=== PATIENT | female | born 1950 | race Caucasian/White ===

== ENCOUNTER 2018-01-17 08:05 | Inpatient (IN) ==
[2018-01-17] MEDS ORDERED: DILTIAZEM 25 MG/5 ML VIAL IV ONE ×2 (08:45→08:48)
[2018-01-17] MEDS ORDERED: DILTIAZEM 50 MG/10 ML VIAL IV STA ×2 (08:51→10:11)
[2018-01-17 09:42] LABS: Basophils % 0.3 % (0.0-0.8); Eosinophils # 0.1 10*3/uL (0.0-0.87); Eosinophils % 0.4 % (0.00-10.9); Hematocrit 43.2 VOL% (35.7-47.0); Hemoglobin 14.4 GM/DL (12.0-16.0); Immature Granulocytes % 0.3 %; Immature Granulocytes Absolute 0.04 #; Lymphocytes # 1.4 10*3/uL (1.4-4.0); Lymphocytes % 11.6 % (21.3-54.2); Mean Corpuscular HGB Conc 33.3 GM/DL (32-36); Mean Corpuscular Hemoglobin 32 PG (27-34); Mean Corpuscular Volume 95.4 FL (87-102); Mean Platelet Volume 9.7 FL (9.6-12.0); Monocytes # 0.6 10*3/uL (0.11-0.8); Monocytes % 4.9 % (1.7-12.7); Neutrophils # 9.8 10*3/uL (1.4-7.4); Neutrophils % 82.5 % (38.7-73.9); Platelet Count 341 T/CUMM (130-400); Red Blood Count 4.53 MC/CUMM (3.8-5.5); Red Cell Distribution Width 13.2 % (9.3-17.3); White Blood Count 11.9 T/CUMM (4-12)
[2018-01-17 10:19] LABS: Alanine Aminotransferase 21 U/L (13-56); Albumin 3.6 G/DL (3.4-5.0); Alkaline Phosphatase 75 U/L (45-117); Aspartate Amino Transferase 23 U/L (0-37); Bilirubin,Total < 0.39 MG/DL (0.2-1.0); Blood Urea Nitrogen 16 MG/DL (7-18); Calcium 8.8 MG/DL (8.5-10.1); Glucose 95 MG/DL (74-106); Osmolality,Calculated 277.5 MOS/KG (273-304); Potassium 4.8 MMOL/L (3.5-5.1); Sodium 139 MMOL/L (136-145)
[2018-01-17] MEDS: DILTIAZEM INJ 100 MG in SODIUM CHLORIDE 0.9% 100 ML IV SCH ×2 (11:18→20:08)
[2018-01-17] MEDS ORDERED: SODIUM CHLORIDE 0.9% 250 ML IV STA (11:30)
[2018-01-17] MEDS ORDERED: MAGNESIUM SULF RIDER 4 GM in PREMIX 1 EACH IV PRN (12:17)
[2018-01-17] MEDS ORDERED: MAGNESIUM SULF RIDER 2 GM in PREMIX 1 EACH IV PRN (12:17)
[2018-01-17] MEDS ORDERED: ENOXAPARIN 40 MG/0.4 ML SYRINGE SUBCUT SCH (12:30)
[2018-01-17] MEDS: SODIUM CHLORIDE 0.9% 1,000 ML IV SCH ×2 (13:45→20:07)
[2018-01-17] MEDS ORDERED: SOTALOL 80 MG TABLET PO SCH (19:00)
[2018-01-17] MEDS: POTASSIUM CHLORIDE 20 MEQ TABLET PO SCH (20:07)
[2018-01-17] MEDS: MAGNESIUM CHLORIDE 64 MG TABLET PO SCH (20:07)
[2018-01-18] MEDS: SODIUM CHLORIDE 0.9% 1,000 ML IV SCH ×2 (04:05→11:34)
[2018-01-18 04:14] LABS: Calcium 7.9 MG/DL (8.5-10.1); Osmolality,Calculated 284.8 MOS/KG (273-304); Potassium 4.3 MMOL/L (3.5-5.1)
[2018-01-18 04:18] LABS: Troponin I < 0.015 NG/ML (0.00-0.045)
[2018-01-18] MEDS ORDERED: dilTIAZem Drip 125 MG/125 ML PREMIX IV SCH (08:00)
[2018-01-18] MEDS ORDERED: ASPIRIN EC 325 MG TABLET PO SCH (09:00)
[2018-01-18] MEDS ORDERED: SOTALOL 80 MG TABLET PO SCH (09:00)
[2018-01-18] MEDS: MAGNESIUM CHLORIDE 64 MG TABLET PO SCH ×2 (09:46→20:51)
[2018-01-18] MEDS: POTASSIUM CHLORIDE 20 MEQ TABLET PO SCH ×2 (09:46→20:52)
[2018-01-18] MEDS: APIXABAN 5 MG TABLET PO SCH ×2 (11:13→20:51)
[2018-01-18] MEDS: DILTIAZEM 60 MG TABLET PO SCH ×3 (12:03→20:51)
[2018-01-18 15:52] LABS: Apearance,Urine CLEAR (Clear); Bilirubin,Urine Negative (Negative); Blood, Urine Moderate mg/dL (Negative); Glucose,Urine (UA) Negative (Negative); Ketones,Urine Negative (Negative); Mucus,Urine Occasional /LPF (Occasional); Nitrite,Urine Negative (Negative); Protein,Urine Negative; RBC,Urine 7 /HPF (0-4); Squamous Epithelial Cell,Urine Occasional /HPF (0-10); Urine Color Colorless (Yellow); Urine Specific Gravity 1.005 (1.001-1.035); Urine Urobilinogen < 2.0 EU/DL (0.2-1.0); WBC,Urine 4 /HPF (0-6)
[2018-01-18] MEDS: SOTALOL 80 MG TABLET PO SCH (20:51)
[2018-01-19 03:51] LABS: Basophils % 0.3 % (0.0-0.8); Eosinophils # 0.1 10*3/uL (0.0-0.87); Eosinophils % 1.2 % (0.00-10.9); Hematocrit 35.3 VOL% (35.7-47.0); Hemoglobin 11.6 GM/DL (12.0-16.0); Immature Granulocytes % 0.3 %; Immature Granulocytes Absolute 0.02 #; Lymphocytes # 2.2 10*3/uL (1.4-4.0); Mean Corpuscular HGB Conc 32.9 GM/DL (32-36); Mean Corpuscular Hemoglobin 32 PG (27-34); Mean Corpuscular Volume 96.4 FL (87-102); Mean Platelet Volume 9.7 FL (9.6-12.0); Monocytes # 0.5 10*3/uL (0.11-0.8); Monocytes % 7.4 % (1.7-12.7); Neutrophils # 3.8 10*3/uL (1.4-7.4); Neutrophils % 57.8 % (38.7-73.9); Platelet Count 291 T/CUMM (130-400); Red Blood Count 3.66 MC/CUMM (3.8-5.5); Red Cell Distribution Width 13.1 % (9.3-17.3); White Blood Count 6.6 T/CUMM (4-12)
[2018-01-19 04:12] LABS: Calcium 8.5 MG/DL (8.5-10.1); Osmolality,Calculated 285.7 MOS/KG (273-304); Potassium 3.9 MMOL/L (3.5-5.1)
[2018-01-19 08:07] VITALS: BP 123/69
[2018-01-19] MEDS: DILTIAZEM 60 MG TABLET PO SCH (08:11)
[2018-01-19] MEDS: SOTALOL 80 MG TABLET PO SCH (08:11)
[2018-01-19] MEDS: APIXABAN 5 MG TABLET PO SCH (08:12)
[2018-01-19] MEDS: MAGNESIUM CHLORIDE 64 MG TABLET PO SCH (08:12)
[2018-01-19] MEDS: POTASSIUM CHLORIDE 20 MEQ TABLET PO SCH (08:12)
[2018-01-19] MEDS ORDERED: ASPIRIN EC 81 MG TABLET PO SCH (09:00)
== END 2018-01-19 10:54 | disposition home or self-care (01) | DRG 310 ==
LOC: N.EDINP 08:05 → N.ED 08:05 → N.TELEN 12:49
PROVIDERS: ADMIT Internal Medicine Cardiovascular Disease; ATTEND Internal Medicine Cardiovascular Disease

== ENCOUNTER 2021-02-14 13:28 | Inpatient (IN) ==
[2021-02-14] MEDS ORDERED: DILTIAZEM 50 MG/10 ML VIAL IV STA (16:58)
[2021-02-14 17:06] LABS: Basophils % 0.6 % (0.0-0.8); Eosinophils % 0.6 % (0.00-10.9); Hematocrit 45.8 VOL% (35.7-47.0); Hemoglobin 14.7 GM/DL (12.0-16.0); Immature Granulocytes % 0.3 %; Immature Granulocytes Absolute 0.02 #; Lymphocytes % 30.6 % (21.3-54.2); Mean Corpuscular HGB Conc 32.1 GM/DL (32-36); Mean Corpuscular Volume 96.6 FL (87-102); Mean Platelet Volume 9.5 FL (9.6-12.0); Monocytes % 8.8 % (1.7-12.7); Neutrophils % 59.1 % (38.7-73.9); Platelet Count 385 T/CUMM (130-400); Red Blood Count 4.74 MC/CUMM (3.8-5.5); Red Cell Distribution Width 13.6 % (9.3-17.3); White Blood Count 6.6 T/CUMM (4-12)
[2021-02-14 17:14] LABS: PT Patient Result 11.3 SECS (10.5-12.0)
[2021-02-14] MEDS: DILTIAZEM INJ 100 MG in SODIUM CHLORIDE 0.9% 100 ML IV SCH (17:20)
[2021-02-14 17:44] LABS: Albumin 3.5 G/DL (3.4-5.0); Bilirubin,Total 0.6 MG/DL (0.20-1.00); Osmolality,Calculated 283.1 MOS/KG (273-304); Potassium 4.3 MMOL/L (3.5-5.1); Total Protein 7.6 G/DL (6.4-8.2)
[2021-02-14] MEDS ORDERED: cefTRIAXone 1,000 MG in SODIUM CHLORIDE 0.9% 100 ML IV STA (17:49)
[2021-02-14] MEDS ORDERED: AZITHROMYCIN 250 MG TABLET PO STA (17:49)
[2021-02-14] MEDS ORDERED: DEXTROSE 50% 25 GM/50 ML SYRINGE IV PRN (18:42)
[2021-02-14] MEDS ORDERED: ONDANSETRON 4 MG/2 ML VIAL IV PRN (18:42)
[2021-02-14] MEDS ORDERED: GLUCAGON 1 MG VIAL IM PRN (18:42)
[2021-02-14] MEDS ORDERED: ENOXAPARIN 100 MG/ML SYRINGE SUBCUT ONE (23:02)
[2021-02-15] MEDS: ENOXAPARIN 60 MG/0.6 ML SYRINGE SUBCUT SCH ×3 (01:02→20:59)
[2021-02-15 06:55] LABS: Basophils % 0.3 % (0.0-0.8); Eosinophils % 0.5 % (0.00-10.9); Hematocrit 41.9 VOL% (35.7-47.0); Hemoglobin 13.8 GM/DL (12.0-16.0); Immature Granulocytes % 0.2 %; Immature Granulocytes Absolute 0.01 #; Lymphocytes # 1.7 10*3/uL (1.4-4.0); Lymphocytes % 28.4 % (21.3-54.2); Mean Corpuscular HGB Conc 32.9 GM/DL (32-36); Mean Corpuscular Volume 96.8 FL (87-102); Mean Platelet Volume 9.4 FL (9.6-12.0); Neutrophils % 62.6 % (38.7-73.9); Platelet Count 326 T/CUMM (130-400); Red Blood Count 4.33 MC/CUMM (3.8-5.5); Red Cell Distribution Width 13.3 % (9.3-17.3)
[2021-02-15 07:24] LABS: Calcium 9.1 MG/DL (8.5-10.1); Potassium 3.8 MMOL/L (3.5-5.1); Thyroid Stimulating Hormone 1.85 uIU/ml (0.358-3.74)
[2021-02-15] MEDS: CLINDAMYCIN INJ 600 MG/50 ML PREMIX IV SCH ×2 (09:35→16:48)
[2021-02-15] MEDS ORDERED: LORazepam 2 MG/1 ML VIAL IV ONE (10:56)
[2021-02-15] MEDS: DILTIAZEM INJ 100 MG in SODIUM CHLORIDE 0.9% 100 ML IV SCH (12:01)
[2021-02-15] MEDS: PANTOPRAZOLE 40 MG TABLET PO SCH (15:03)
[2021-02-15] MEDS: DOCUSATE SODIUM 100 MG CAPSULE PO SCH ×2 (15:03→21:03)
[2021-02-15] MEDS: SOTALOL 80 MG TABLET PO SCH ×2 (15:03→23:41)
[2021-02-15] MEDS: POLYETHYLENE GLYCOL POWDER 17 GM PACK PO SCH (15:04)
[2021-02-15] MEDS: PIPERACILLIN/TAZOBACTAM 3,375 MG in SODIUM CHLORIDE 0.9% 100 ML IV SCH (15:59)
[2021-02-15] MEDS ORDERED: cefTRIAXone 1,000 MG in SODIUM CHLORIDE 0.9% 100 ML IV SCH (20:00)
[2021-02-15] MEDS ORDERED: AZITHROMYCIN INJ 500 MG in SODIUM CHLORIDE 0.9% 250 ML IV SCH (21:00)
[2021-02-16] MEDS: PIPERACILLIN/TAZOBACTAM 3,375 MG in SODIUM CHLORIDE 0.9% 100 ML IV SCH ×3 (00:30→17:00)
[2021-02-16] MEDS: DILTIAZEM INJ 100 MG in SODIUM CHLORIDE 0.9% 100 ML IV SCH ×2 (02:27→20:45)
[2021-02-16] MEDS: SOTALOL 80 MG TABLET PO SCH ×2 (09:00→20:47)
[2021-02-16] MEDS: PANTOPRAZOLE 40 MG TABLET PO SCH (09:17)
[2021-02-16] MEDS: DOCUSATE SODIUM 100 MG CAPSULE PO SCH ×2 (09:17→22:43)
[2021-02-16] MEDS: POLYETHYLENE GLYCOL POWDER 17 GM PACK PO SCH (09:17)
[2021-02-16] MEDS: VANCOMYCIN INJ 1,000 MG in SODIUM CHLORIDE 0.9% 250 ML IV SCH ×2 (11:21→20:50)
[2021-02-16] MEDS: ENOXAPARIN 60 MG/0.6 ML SYRINGE SUBCUT SCH ×2 (11:29→22:44)
[2021-02-17] MEDS: PIPERACILLIN/TAZOBACTAM 3,375 MG in SODIUM CHLORIDE 0.9% 100 ML IV SCH ×3 (00:22→18:15)
[2021-02-17] MEDS: SOTALOL 80 MG TABLET PO SCH ×2 (09:20→20:59)
[2021-02-17] MEDS: VANCOMYCIN INJ 1,000 MG in SODIUM CHLORIDE 0.9% 250 ML IV SCH ×2 (09:20→21:01)
[2021-02-17] MEDS: DOCUSATE SODIUM 100 MG CAPSULE PO SCH ×3 (09:21→23:44)
[2021-02-17] MEDS: POLYETHYLENE GLYCOL POWDER 17 GM PACK PO SCH ×2 (09:21→09:32)
[2021-02-17] MEDS: PANTOPRAZOLE 40 MG TABLET PO SCH (09:21)
[2021-02-17] MEDS: ENOXAPARIN 60 MG/0.6 ML SYRINGE SUBCUT SCH ×2 (09:21→21:00)
[2021-02-17] MEDS: DILTIAZEM INJ 100 MG in SODIUM CHLORIDE 0.9% 100 ML IV SCH ×2 (10:00→18:44)
[2021-02-17] MEDS: AZITHROMYCIN INJ 500 MG in SODIUM CHLORIDE 0.9% 250 ML IV SCH (16:27)
[2021-02-17] MEDS ORDERED: DILTIAZEM 30 MG TABLET PO ONE (17:45)
[2021-02-17] MEDS ORDERED: DILTIAZEM 30 MG TABLET PO SCH (21:00)
[2021-02-18] MEDS: PIPERACILLIN/TAZOBACTAM 3,375 MG in SODIUM CHLORIDE 0.9% 100 ML IV SCH ×4 (00:08→23:18)
[2021-02-18 05:33] LABS: Basophils % 0.5 % (0.0-0.8); Eosinophils # 0.2 10*3/uL (0.0-0.87); Eosinophils % 3.8 % (0.00-10.9); Hemoglobin 10.9 GM/DL (12.0-16.0); Immature Granulocytes % 0.2 %; Immature Granulocytes Absolute 0.01 #; Lymphocytes # 1.9 10*3/uL (1.4-4.0); Mean Corpuscular HGB Conc 32.1 GM/DL (32-36); Mean Corpuscular Volume 97.1 FL (87-102); Mean Platelet Volume 9.9 FL (9.6-12.0); Monocytes % 9.6 % (1.7-12.7); Neutrophils % 50.9 % (38.7-73.9); Platelet Count 287 T/CUMM (130-400); Red Cell Distribution Width 13.6 % (9.3-17.3); White Blood Count 5.5 T/CUMM (4-12)
[2021-02-18 05:51] LABS: Calcium 8.7 MG/DL (8.5-10.1); Osmolality,Calculated 283.8 MOS/KG (273-304); Potassium 3.9 MMOL/L (3.5-5.1)
[2021-02-18] MEDS: SOTALOL 80 MG TABLET PO SCH ×2 (09:11→21:51)
[2021-02-18] MEDS: PANTOPRAZOLE 40 MG TABLET PO SCH (09:12)
[2021-02-18] MEDS: ENOXAPARIN 60 MG/0.6 ML SYRINGE SUBCUT SCH ×2 (09:12→21:51)
[2021-02-18] MEDS: VANCOMYCIN INJ 1,000 MG in SODIUM CHLORIDE 0.9% 250 ML IV SCH ×2 (09:14→21:51)
[2021-02-18] MEDS: DOCUSATE SODIUM 100 MG CAPSULE PO SCH ×2 (09:26→21:52)
[2021-02-18] MEDS: POLYETHYLENE GLYCOL POWDER 17 GM PACK PO SCH (09:26)
[2021-02-18] MEDS: AZITHROMYCIN INJ 500 MG in SODIUM CHLORIDE 0.9% 250 ML IV SCH (16:01)
[2021-02-19] MEDS: POLYETHYLENE GLYCOL POWDER 17 GM PACK PO SCH (09:16)
[2021-02-19] MEDS: DOCUSATE SODIUM 100 MG CAPSULE PO SCH ×2 (09:16→22:49)
[2021-02-19] MEDS: PANTOPRAZOLE 40 MG TABLET PO SCH (09:18)
[2021-02-19] MEDS: SOTALOL 80 MG TABLET PO SCH ×2 (09:18→22:33)
[2021-02-19] MEDS: ENOXAPARIN 60 MG/0.6 ML SYRINGE SUBCUT SCH (09:19)
[2021-02-19] MEDS: VANCOMYCIN INJ 1,000 MG in SODIUM CHLORIDE 0.9% 250 ML IV SCH (09:20)
[2021-02-19] MEDS: PIPERACILLIN/TAZOBACTAM 3,375 MG in SODIUM CHLORIDE 0.9% 100 ML IV SCH ×2 (09:21→16:16)
[2021-02-19] MEDS: APIXABAN 5 MG TABLET PO SCH ×2 (10:48→22:34)
[2021-02-19] MEDS: AZITHROMYCIN INJ 500 MG in SODIUM CHLORIDE 0.9% 250 ML IV SCH (16:16)
[2021-02-19] MEDS ORDERED: APIXABAN 5 MG TABLET PO SCH (21:00)
[2021-02-20] MEDS: VANCOMYCIN INJ 1,000 MG in SODIUM CHLORIDE 0.9% 250 ML IV SCH ×3 (00:29→22:04)
[2021-02-20] MEDS: PIPERACILLIN/TAZOBACTAM 3,375 MG in SODIUM CHLORIDE 0.9% 100 ML IV SCH ×3 (02:06→17:34)
[2021-02-20] MEDS: PANTOPRAZOLE 40 MG TABLET PO SCH (09:02)
[2021-02-20] MEDS: APIXABAN 5 MG TABLET PO SCH ×2 (09:03→21:42)
[2021-02-20] MEDS: SOTALOL 80 MG TABLET PO SCH ×2 (09:03→21:42)
[2021-02-20] MEDS: POLYETHYLENE GLYCOL POWDER 17 GM PACK PO SCH (09:31)
[2021-02-20] MEDS: DOCUSATE SODIUM 100 MG CAPSULE PO SCH ×2 (09:31→21:43)
[2021-02-20] MEDS: AZITHROMYCIN INJ 500 MG in SODIUM CHLORIDE 0.9% 250 ML IV SCH (16:28)
[2021-02-21] MEDS: PIPERACILLIN/TAZOBACTAM 3,375 MG in SODIUM CHLORIDE 0.9% 100 ML IV SCH ×2 (00:25→09:36)
[2021-02-21 08:14] VITALS: BP 174/86
[2021-02-21] MEDS: APIXABAN 5 MG TABLET PO SCH (09:33)
[2021-02-21] MEDS: PANTOPRAZOLE 40 MG TABLET PO SCH (09:33)
[2021-02-21] MEDS: SOTALOL 80 MG TABLET PO SCH (09:33)
[2021-02-21] MEDS: DOCUSATE SODIUM 100 MG CAPSULE PO SCH (09:34)
[2021-02-21] MEDS: POLYETHYLENE GLYCOL POWDER 17 GM PACK PO SCH (09:34)
[2021-02-21] MEDS: VANCOMYCIN INJ 1,000 MG in SODIUM CHLORIDE 0.9% 250 ML IV SCH (12:41)
== END 2021-02-21 14:34 | disposition home or self-care (01) | DRG 177 ==
LOC: SUATTDRO → N.ED 13:28 → N.EDINP 18:42 → SUATTDRO 18:42 → N.TELES 20:50
PROVIDERS: ADMIT Internal Medicine; ATTEND Emergency Medicine

== ENCOUNTER 2021-05-13 10:15 | Observation (INO) ==
[2021-05-13] MEDS ORDERED: DILTIAZEM 50 MG/10 ML VIAL IV STA (10:46)
[2021-05-13] MEDS ORDERED: SODIUM CHLORIDE 0.9% 1,000 ML IV STA (10:48)
[2021-05-13 10:55] LABS: Basophils % 0.4 % (0.0-0.8); Eosinophils % 0.2 % (0.00-10.9); Hematocrit 42.8 VOL% (35.7-47.0); Hemoglobin 14.2 GM/DL (12.0-16.0); Immature Granulocytes % 0.4 %; Immature Granulocytes Absolute 0.03 #; Lymphocytes # 1.9 10*3/uL (1.4-4.0); Lymphocytes % 22.9 % (21.3-54.2); Mean Corpuscular HGB Conc 33.2 GM/DL (32-36); Mean Corpuscular Volume 94.3 FL (87-102); Mean Platelet Volume 9.4 FL (9.6-12.0); Monocytes % 7.9 % (1.7-12.7); Neutrophils % 68.2 % (38.7-73.9); Platelet Count 366 T/CUMM (130-400); Red Blood Count 4.54 MC/CUMM (3.8-5.5); Red Cell Distribution Width 13.4 % (9.3-17.3); White Blood Count 8.5 T/CUMM (4-12)
[2021-05-13] MEDS ORDERED: ENOXAPARIN 60 MG/0.6 ML SYRINGE SUBCUT SCH ×2 (11:00→23:00)
[2021-05-13 11:25] LABS: Thyroid Stimulating Hormone 1.67 uIU/ml (0.358-3.74)
[2021-05-13 11:34] LABS: Albumin 3.6 G/DL (3.4-5.0); Bilirubin,Total 0.4 MG/DL (0.20-1.00); Calcium 9.9 MG/DL (8.5-10.1); Osmolality,Calculated 275.5 MOS/KG (273-304); Total Protein 7.6 G/DL (6.4-8.2)
[2021-05-13] MEDS ORDERED: DEXTROSE 10% 250 ML BAG IV PRN (12:29)
[2021-05-13] MEDS ORDERED: GLUCAGON 1 MG VIAL IM PRN (12:29)
[2021-05-13] MEDS: DILTIAZEM 60 MG TABLET PO SCH ×2 (17:20→23:38)
[2021-05-13] MEDS: SOTALOL 80 MG TABLET PO SCH (21:15)
[2021-05-13] MEDS: MAGNESIUM CHLORIDE 64 MG TABLET PO SCH (21:15)
[2021-05-14] MEDS: DILTIAZEM 60 MG TABLET PO SCH ×4 (05:27→23:50)
[2021-05-14 07:31] LABS: Calcium 9.1 MG/DL (8.5-10.1); Osmolality,Calculated 276.5 MOS/KG (273-304); Potassium 4.1 MMOL/L (3.5-5.1)
[2021-05-14] MEDS: POTASSIUM CHLORIDE 20 MEQ TABLET PO SCH (09:55)
[2021-05-14] MEDS: CALCIUM (CARBONATE) 500 MG TABLET PO SCH (09:55)
[2021-05-14] MEDS: SOTALOL 80 MG TABLET PO SCH ×2 (09:55→20:28)
[2021-05-14] MEDS: ASCORBIC ACID 500 MG TABLET PO SCH (09:56)
[2021-05-14] MEDS: CHOLECALCIFEROL 5,000 UNIT TABLET PO SCH (09:56)
[2021-05-14] MEDS: MAGNESIUM CHLORIDE 64 MG TABLET PO SCH ×2 (09:56→20:28)
[2021-05-14] MEDS ORDERED: ENOXAPARIN 60 MG/0.6 ML SYRINGE SUBCUT ONE (16:34)
[2021-05-15] MEDS: DILTIAZEM 60 MG TABLET PO SCH ×4 (05:46→23:43)
[2021-05-15 09:12] LABS: PT Patient Result 11.1 SECS (10.5-12.0)
[2021-05-15] MEDS ORDERED: DIAZEPAM 10 MG/2 ML SYRINGE IV ONE (10:08)
[2021-05-15] MEDS: SOTALOL 80 MG TABLET PO SCH ×2 (10:16→20:15)
[2021-05-15] MEDS ORDERED: DIAZEPAM 5 MG TABLET PO ONE (12:33)
[2021-05-15] MEDS ORDERED: DIAZEPAM 5 MG TABLET ONE (12:38)
[2021-05-15] MEDS: ASCORBIC ACID 500 MG TABLET PO SCH (16:32)
[2021-05-15] MEDS: POTASSIUM CHLORIDE 20 MEQ TABLET PO SCH (16:32)
[2021-05-15] MEDS: MAGNESIUM CHLORIDE 64 MG TABLET PO SCH ×2 (16:32→20:16)
[2021-05-15] MEDS: CALCIUM (CARBONATE) 500 MG TABLET PO SCH (16:33)
[2021-05-15] MEDS: CHOLECALCIFEROL 5,000 UNIT TABLET PO SCH (16:33)
[2021-05-16] MEDS: DILTIAZEM 60 MG TABLET PO SCH (04:35)
[2021-05-16 05:44] LABS: Calcium 9.7 MG/DL (8.5-10.1); Osmolality,Calculated 280.4 MOS/KG (273-304); Potassium 5.5 MMOL/L (3.5-5.1)
[2021-05-16 08:41] VITALS: BP 137/64
[2021-05-16] MEDS: MAGNESIUM CHLORIDE 64 MG TABLET PO SCH (09:40)
[2021-05-16] MEDS: SOTALOL 80 MG TABLET PO SCH (09:40)
[2021-05-16] MEDS: CALCIUM (CARBONATE) 500 MG TABLET PO SCH (09:40)
[2021-05-16] MEDS: ASCORBIC ACID 500 MG TABLET PO SCH (09:40)
[2021-05-16] MEDS: CHOLECALCIFEROL 5,000 UNIT TABLET PO SCH (09:40)
[2021-05-16] MEDS ORDERED: APIXABAN 5 MG TABLET PO SCH (10:30)
== END 2021-05-16 11:20 | disposition home or self-care (01) ==
LOC: N.EDINP 10:15 → N.ED 10:15 → SUATTDRO 12:41 → N.TELES 05-14 13:50
PROVIDERS: ADMIT Internal Medicine; ATTEND Internal Medicine

== ENCOUNTER 2021-07-03 06:53 | Inpatient (IN) ==
[2021-07-01 11:29] LABS: Basophils % 0.5 % (0.0-0.8); Eosinophils % 0.4 % (0.00-10.9); Hematocrit 39.6 VOL% (35.7-47.0); Hemoglobin 12.8 GM/DL (12.0-16.0); Immature Granulocytes % 0.2 %; Immature Granulocytes Absolute 0.01 #; Lymphocytes # 1.2 10*3/uL (1.4-4.0); Lymphocytes % 21.7 % (21.3-54.2); Mean Corpuscular HGB Conc 32.3 GM/DL (32-36); Mean Corpuscular Volume 96.6 FL (87-102); Mean Platelet Volume 10.2 FL (9.6-12.0); Monocytes % 7.7 % (1.7-12.7); Neutrophils % 69.5 % (38.7-73.9); Platelet Count 318 T/CUMM (130-400); Red Cell Distribution Width 13.5 % (9.3-17.3); White Blood Count 5.7 T/CUMM (4-12)
[2021-07-01 11:48] LABS: PT Patient Result 10.9 SECS (10.5-12.0); Partial Thromboplastin Time 27.6 SECS (23.8-32.1)
[2021-07-01 12:11] LABS: Albumin 3.6 G/DL (3.4-5.0); Bilirubin,Total 0.6 MG/DL (0.20-1.00); Calcium 9.7 MG/DL (8.5-10.1); Osmolality,Calculated 279.3 MOS/KG (273-304); Potassium 4.6 MMOL/L (3.5-5.1); Total Protein 7.3 G/DL (6.4-8.2)
[~2021-07-03 06:53] MED LIST: DEXAMETHASONE 4 MG/1 ML VIAL ONE; DEXMEDETOMIDINE 200 MCG/2 ML VIAL ONE; HEPARIN/NACL 0.9% 2 UNITS/ML 1,000 UNIT/500 ML BAG IV ONE; LIDOCAINE 1% 5 ML VIAL ONE; ROPIVACAINE 0.5% 30 ML VIAL ONE
[2021-07-03] MEDS ORDERED: SCOPOLAMINE 1.5 MG PATCH TRANSDERM ONE (08:21)
[2021-07-03] MEDS: LACTATED RINGERS 1,000 ML IV SCH (08:38)
[2021-07-03] MEDS ORDERED: DEXAMETHASONE 4 MG/1 ML VIAL ONE (08:56)
[2021-07-03] MEDS ORDERED: SEVOFLURANE 1 UNIT/15 MINUTE INH ONE ×3 (08:56→12:10)
[2021-07-03] MEDS ORDERED: ROCURONIUM 50 MG/5 ML VIAL IV ONE (08:56)
[2021-07-03] MEDS ORDERED: ONDANSETRON 4 MG/2 ML VIAL ONE (08:56)
[2021-07-03] MEDS ORDERED: LIDOCAINE 2% 5 ML VIAL ONE (08:56)
[2021-07-03] MEDS ORDERED: propofoL 200 MG/20 ML VIAL IV ONE (08:56)
[2021-07-03] MEDS ORDERED: ACETAMINOPHEN INJ 1,000 MG/100 ML VIAL IV ONE (08:56)
[2021-07-03] MEDS ORDERED: fentaNYL 250 MCG/5 ML VIAL ONE (08:57)
[2021-07-03] MEDS ORDERED: PHENYLEPHRINE 10 MG/1 ML VIAL IV ONE (09:05)
[2021-07-03] MEDS ORDERED: VANCOMYCIN 500 MG VIAL ONE (09:31)
[2021-07-03] MEDS ORDERED: TALC INTRAPLEURAL POWDER 3 GM VIAL INTRAPLEUR ONE (09:31)
[2021-07-03] MEDS ORDERED: MIDAZOLAM 2 MG/2 ML VIAL ONE (09:38)
[2021-07-03] MEDS ORDERED: ePHEDrine 50 MG/ML VIAL ONE ×2 (09:48→10:30)
[2021-07-03] MEDS ORDERED: KETOROLAC 30 MG/1 ML VIAL ONE (10:16)
[2021-07-03] MEDS ORDERED: BUPIVACAINE LIPOSOMAL 20 ML/266 MG VIAL ONE (10:47)
[2021-07-03] MEDS ORDERED: NEOSTIGMINE 10 MG/10 ML VIAL ONE (11:21)
[2021-07-03] MEDS ORDERED: GLYCOPYRROLATE 0.4 MG/2 ML VIAL ONE ×2 (11:22)
[2021-07-03] MEDS ORDERED: ONDANSETRON 4 MG/2 ML VIAL IV PRN (11:49)
[2021-07-03] MEDS ORDERED: BISACODYL 10 MG SUPP RECTAL PRN (11:49)
[2021-07-03] MEDS ORDERED: DILTIAZEM CD 120 MG CAPSULE PO PRN (11:56)
[2021-07-03] MEDS ORDERED: amLODIPine 5 MG TABLET PO PRN (11:56)
[2021-07-03] MEDS ORDERED: HYDROmorphone 1 MG/1 ML SYRINGE IV PRN ×2 (12:07)
[2021-07-03] MEDS: DEXT 5% NACL 0.45% KCL 10 MEQ 10 MEQ/1,000 ML BAG IV SCH (15:18)
[2021-07-03] MEDS: KETOROLAC 10 MG TABLET PO SCH ×2 (17:55→23:54)
[2021-07-03] MEDS: MAGNESIUM CHLORIDE 64 MG TABLET PO SCH (21:03)
[2021-07-03] MEDS: SOTALOL 80 MG TABLET PO SCH (21:04)
[2021-07-03] MEDS: ACETAMINOPHEN 325 MG TABLET PO PRN (22:36)
[2021-07-04] MEDS: DEXT 5% NACL 0.45% KCL 10 MEQ 10 MEQ/1,000 ML BAG IV SCH (01:22)
[2021-07-04] MEDS: KETOROLAC 10 MG TABLET PO SCH ×3 (05:15→18:41)
[2021-07-04] MEDS: ENOXAPARIN 40 MG/0.4 ML SYRINGE SUBCUT SCH (05:15)
[2021-07-04 06:34] LABS: Basophils % 0.1 % (0.0-0.8); Hematocrit 33.7 VOL% (35.7-47.0); Hemoglobin 11.1 GM/DL (12.0-16.0); Immature Granulocytes % 0.4 %; Immature Granulocytes Absolute 0.06 #; Lymphocytes # 0.7 10*3/uL (1.4-4.0); Lymphocytes % 4.8 % (21.3-54.2); Mean Corpuscular HGB Conc 32.9 GM/DL (32-36); Mean Corpuscular Volume 94.9 FL (87-102); Mean Platelet Volume 10.2 FL (9.6-12.0); Monocytes % 5.3 % (1.7-12.7); Neutrophils % 89.4 % (38.7-73.9); Platelet Count 264 T/CUMM (130-400); Red Blood Count 3.55 MC/CUMM (3.8-5.5); Red Cell Distribution Width 13.2 % (9.3-17.3); White Blood Count 15.3 T/CUMM (4-12)
[2021-07-04 07:02] LABS: Calcium 8.7 MG/DL (8.5-10.1); Osmolality,Calculated 269.2 MOS/KG (273-304)
[2021-07-04] MEDS: BACILLUS COAGULANS CAPLET PO SCH (08:37)
[2021-07-04] MEDS: ZINC GLUCONATE 50 MG TABLET PO SCH (08:37)
[2021-07-04] MEDS: CALCIUM (CARBONATE) 500 MG TABLET PO SCH (08:37)
[2021-07-04] MEDS: PANTOPRAZOLE 40 MG TABLET PO SCH (08:37)
[2021-07-04] MEDS: CHOLECALCIFEROL 5,000 UNIT TABLET PO SCH (08:38)
[2021-07-04] MEDS: MAGNESIUM CHLORIDE 64 MG TABLET PO SCH ×2 (08:38→20:10)
[2021-07-04] MEDS: ASCORBIC ACID 500 MG TABLET PO SCH (08:38)
[2021-07-04] MEDS: LACTATED RINGERS 1,000 ML IV SCH (12:07)
[2021-07-04] MEDS: ACETAMINOPHEN 325 MG TABLET PO PRN ×2 (12:17→18:42)
[2021-07-04] MEDS ORDERED: diphenhydrAMINE CAP 50 MG CAPSULE PO PRN (17:37)
[2021-07-04] MEDS ORDERED: diphenhydrAMINE CAP 25 MG CAPSULE PO PRN (18:30)
[2021-07-04] MEDS: diphenhydrAMINE CAP 25 MG CAPSULE PO PRN (20:09)
[2021-07-04] MEDS: SOTALOL 80 MG TABLET PO SCH (20:15)
[2021-07-05] MEDS: KETOROLAC 10 MG TABLET PO SCH ×5 (00:17→23:51)
[2021-07-05] MEDS: ENOXAPARIN 40 MG/0.4 ML SYRINGE SUBCUT SCH (05:28)
[2021-07-05] MEDS: ACETAMINOPHEN 325 MG TABLET PO PRN ×3 (08:44→23:51)
[2021-07-05] MEDS: BACILLUS COAGULANS CAPLET PO SCH (08:44)
[2021-07-05] MEDS: MAGNESIUM CHLORIDE 64 MG TABLET PO SCH ×2 (08:44→21:02)
[2021-07-05] MEDS: CHOLECALCIFEROL 5,000 UNIT TABLET PO SCH (08:44)
[2021-07-05] MEDS: ZINC GLUCONATE 50 MG TABLET PO SCH (08:44)
[2021-07-05] MEDS: ASCORBIC ACID 500 MG TABLET PO SCH (08:45)
[2021-07-05] MEDS: PANTOPRAZOLE 40 MG TABLET PO SCH (08:45)
[2021-07-05] MEDS: CALCIUM (CARBONATE) 500 MG TABLET PO SCH (08:45)
[2021-07-05] MEDS: LACTATED RINGERS 1,000 ML IV SCH (09:38)
[2021-07-05] MEDS: APIXABAN 5 MG TABLET PO SCH ×2 (10:07→21:03)
[2021-07-05] MEDS ORDERED: MAGNESIUM HYDROXIDE SUSP 30 ML UDCUP PO PRN (11:55)
[2021-07-05] MEDS: SOTALOL 80 MG TABLET PO SCH (21:02)
[2021-07-05] MEDS: diphenhydrAMINE CAP 25 MG CAPSULE PO PRN (21:03)
[2021-07-06] MEDS: ACETAMINOPHEN 325 MG TABLET PO PRN ×2 (04:51→10:04)
[2021-07-06] MEDS: KETOROLAC 10 MG TABLET PO SCH ×4 (05:22→23:40)
[2021-07-06] MEDS ORDERED: TEMAZEPAM 15 MG CAPSULE PO PRN (08:33)
[2021-07-06] MEDS: ASCORBIC ACID 500 MG TABLET PO SCH (10:02)
[2021-07-06] MEDS: APIXABAN 5 MG TABLET PO SCH ×2 (10:02→20:16)
[2021-07-06] MEDS: CHOLECALCIFEROL 5,000 UNIT TABLET PO SCH (10:02)
[2021-07-06] MEDS: ZINC GLUCONATE 50 MG TABLET PO SCH (10:02)
[2021-07-06] MEDS: PANTOPRAZOLE 40 MG TABLET PO SCH (10:02)
[2021-07-06] MEDS: BACILLUS COAGULANS CAPLET PO SCH (10:02)
[2021-07-06] MEDS: LACTATED RINGERS 1,000 ML IV SCH (10:03)
[2021-07-06] MEDS: MAGNESIUM CHLORIDE 64 MG TABLET PO SCH ×2 (10:03→20:16)
[2021-07-06] MEDS: CALCIUM (CARBONATE) 500 MG TABLET PO SCH ×2 (10:09→10:49)
[2021-07-06] MEDS ORDERED: DILTIAZEM INJ 100 MG in SODIUM CHLORIDE 0.9% 100 ML IV SCH (17:30)
[2021-07-06] MEDS ORDERED: DIGOXIN 0.5 MG/2 ML AMP IV ONE (18:16)
[2021-07-06 18:35] LABS: Basophils % 0.3 % (0.0-0.8); Eosinophils % 0.4 % (0.00-10.9); Hematocrit 29.7 VOL% (35.7-47.0); Hemoglobin 9.9 GM/DL (12.0-16.0); Immature Granulocytes % 0.4 %; Immature Granulocytes Absolute 0.03 #; Lymphocytes # 1.4 10*3/uL (1.4-4.0); Lymphocytes % 17.6 % (21.3-54.2); Mean Corpuscular HGB Conc 33.3 GM/DL (32-36); Mean Corpuscular Volume 93.1 FL (87-102); Mean Platelet Volume 9.7 FL (9.6-12.0); Monocytes % 11.9 % (1.7-12.7); Neutrophils % 69.4 % (38.7-73.9); Platelet Count 251 T/CUMM (130-400); Red Blood Count 3.19 MC/CUMM (3.8-5.5); Red Cell Distribution Width 13.2 % (9.3-17.3); White Blood Count 7.8 T/CUMM (4-12)
[2021-07-06] MEDS ORDERED: SOTALOL 80 MG TABLET PO ONE (18:37)
[2021-07-06] MEDS: SODIUM CHLORIDE 0.9% 1,000 ML IV SCH (18:41)
[2021-07-06 18:55] LABS: Alanine Aminotransferase 27 U/L (13-56); Albumin 2.6 G/DL (3.4-5.0); Alkaline Phosphatase 59 U/L (45-117); Aspartate Amino Transferase 33 U/L (0-37); Bilirubin,Total < 0.39 MG/DL (0.20-1.00); Blood Urea Nitrogen 11 MG/DL (7-18); Calcium 8.6 MG/DL (8.5-10.1); Carbon Dioxide 25 MMOL/L (21-32); Estimated Glom Filtration Rate 80 ML/MIN; Glucose 140 MG/DL (74-106); Osmolality,Calculated 273.8 MOS/KG (273-304); Potassium 3.4 MMOL/L (3.5-5.1); Sodium 137 MMOL/L (136-145); Total Protein 6.3 G/DL (6.4-8.2)
[2021-07-06] MEDS: SOTALOL 80 MG TABLET PO SCH (20:15)
[2021-07-06] MEDS: diphenhydrAMINE CAP 25 MG CAPSULE PO PRN (20:16)
[2021-07-07] MEDS: DILTIAZEM INJ 100 MG in SODIUM CHLORIDE 0.9% 100 ML IV SCH ×3 (00:23→21:39)
[2021-07-07] MEDS: KETOROLAC 10 MG TABLET PO SCH ×4 (06:22→23:58)
[2021-07-07] MEDS: APIXABAN 5 MG TABLET PO SCH ×2 (08:55→20:33)
[2021-07-07] MEDS: SODIUM CHLORIDE 0.9% 1,000 ML IV SCH ×2 (08:55→21:50)
[2021-07-07] MEDS: BACILLUS COAGULANS CAPLET PO SCH (08:55)
[2021-07-07] MEDS: SOTALOL 80 MG TABLET PO SCH ×2 (08:55→20:33)
[2021-07-07] MEDS: PANTOPRAZOLE 40 MG TABLET PO SCH (08:56)
[2021-07-07] MEDS: ASCORBIC ACID 500 MG TABLET PO SCH (08:56)
[2021-07-07] MEDS: LACTATED RINGERS 1,000 ML IV SCH (08:56)
[2021-07-07] MEDS: MAGNESIUM CHLORIDE 64 MG TABLET PO SCH ×2 (08:56→20:33)
[2021-07-07] MEDS: CALCIUM (CARBONATE) 500 MG TABLET PO SCH (08:56)
[2021-07-07] MEDS: CHOLECALCIFEROL 5,000 UNIT TABLET PO SCH (08:58)
[2021-07-07] MEDS: ZINC GLUCONATE 50 MG TABLET PO SCH (08:58)
[2021-07-07 09:59] LABS: Calcium 8.4 MG/DL (8.5-10.1); Osmolality,Calculated 277.5 MOS/KG (273-304); Potassium 3.8 MMOL/L (3.5-5.1)
[2021-07-07] MEDS: diphenhydrAMINE CAP 25 MG CAPSULE PO PRN (20:35)
[2021-07-08] MEDS: DILTIAZEM INJ 100 MG in SODIUM CHLORIDE 0.9% 100 ML IV SCH (00:25)
[2021-07-08] MEDS: KETOROLAC 10 MG TABLET PO SCH ×2 (05:56→13:02)
[2021-07-08] MEDS: ZINC GLUCONATE 50 MG TABLET PO SCH (09:37)
[2021-07-08] MEDS: ASCORBIC ACID 500 MG TABLET PO SCH (09:37)
[2021-07-08] MEDS: SOTALOL 80 MG TABLET PO SCH ×2 (09:37→20:23)
[2021-07-08] MEDS: CHOLECALCIFEROL 5,000 UNIT TABLET PO SCH (09:37)
[2021-07-08] MEDS: APIXABAN 5 MG TABLET PO SCH ×2 (09:37→20:23)
[2021-07-08] MEDS: MAGNESIUM CHLORIDE 64 MG TABLET PO SCH ×2 (09:38→20:23)
[2021-07-08] MEDS: PANTOPRAZOLE 40 MG TABLET PO SCH (09:38)
[2021-07-08] MEDS: CALCIUM (CARBONATE) 500 MG TABLET PO SCH (09:38)
[2021-07-08] MEDS: BACILLUS COAGULANS CAPLET PO SCH (09:38)
[2021-07-08] MEDS: SODIUM CHLORIDE 0.9% 1,000 ML IV SCH ×2 (12:08→23:50)
[2021-07-08] MEDS: DILTIAZEM 30 MG TABLET PO SCH ×2 (15:16→20:23)
[2021-07-08 15:20] VITALS: BP 123/73
[2021-07-09] MEDS: DILTIAZEM INJ 100 MG in SODIUM CHLORIDE 0.9% 100 ML IV SCH (00:30)
[2021-07-09] MEDS: METOPROLOL TARTRATE 5 MG/5 ML VIAL IV PRN ×2 (03:11→04:35)
[2021-07-09] MEDS: SODIUM CHLORIDE 0.9% 1,000 ML IV SCH (04:34)
[2021-07-09 05:16] LABS: Basophils % 0.5 % (0.0-0.8); Eosinophils # 0.1 10*3/uL (0.0-0.87); Eosinophils % 0.9 % (0.00-10.9); Hematocrit 30.3 VOL% (35.7-47.0); Hemoglobin 9.8 GM/DL (12.0-16.0); Immature Granulocytes % 0.5 %; Immature Granulocytes Absolute 0.04 #; Lymphocytes # 1.4 10*3/uL (1.4-4.0); Mean Corpuscular HGB Conc 32.3 GM/DL (32-36); Mean Corpuscular Volume 96.5 FL (87-102); Monocytes % 8.2 % (1.7-12.7); Neutrophils % 72.9 % (38.7-73.9); Platelet Count 346 T/CUMM (130-400); Red Blood Count 3.14 MC/CUMM (3.8-5.5); Red Cell Distribution Width 13.7 % (9.3-17.3); White Blood Count 8.5 T/CUMM (4-12)
[2021-07-09 05:35] LABS: Calcium 8.7 MG/DL (8.5-10.1); Osmolality,Calculated 278.3 MOS/KG (273-304); Potassium 3.9 MMOL/L (3.5-5.1)
[2021-07-09] MEDS ORDERED: DILTIAZEM CD 180 MG CAPSULE PO SCH (09:00)
[2021-07-09] MEDS: BACILLUS COAGULANS CAPLET PO SCH (09:19)
[2021-07-09] MEDS: CALCIUM (CARBONATE) 500 MG TABLET PO SCH (09:19)
[2021-07-09] MEDS: SOTALOL 80 MG TABLET PO SCH (09:19)
[2021-07-09] MEDS: CHOLECALCIFEROL 5,000 UNIT TABLET PO SCH (09:20)
[2021-07-09] MEDS: PANTOPRAZOLE 40 MG TABLET PO SCH (09:20)
[2021-07-09] MEDS: ASCORBIC ACID 500 MG TABLET PO SCH (09:20)
[2021-07-09] MEDS: MAGNESIUM CHLORIDE 64 MG TABLET PO SCH (09:20)
[2021-07-09] MEDS: ZINC GLUCONATE 50 MG TABLET PO SCH (09:20)
[2021-07-09] MEDS: APIXABAN 5 MG TABLET PO SCH (09:20)
== END 2021-07-09 10:46 | disposition home or self-care (01) | DRG 164 ==
LOC: N.OR 06:53 → N.SDSINP 06:55 → EDSTATUS 08:30 → N.3E 14:06 → N.CC 07-06 17:31
PROVIDERS: ADMIT Surgery; ATTEND Surgery